=== PATIENT | female | born 1960 | race Caucasian/White ===

== ENCOUNTER 2020-09-05 10:29 | Inpatient (IN) ==
[2020-09-05] MEDS ORDERED: MIDAZOLAM 2 MG/2 ML VIAL ONE (11:37)
[2020-09-05] MEDS ORDERED: propofoL 200 MG/20 ML VIAL IV ONE (11:37)
[2020-09-05] MEDS ORDERED: fentaNYL 100 MCG/2 ML VIAL ONE (11:37)
[2020-09-05] MEDS ORDERED: LIDOCAINE 2% 5 ML VIAL ONE (11:37)
[2020-09-05] MEDS ORDERED: SUCCINYLCHOLINE 200 MG/10 ML VIAL ONE (11:38)
[2020-09-05] MEDS ORDERED: LACTATED RINGERS 1,000 ML IV SCH (12:30)
[2020-09-05 12:32] LABS: Basophils # 0.1 10*3/uL (0.0-0.2); Basophils % 0.9 % (0.0-0.8); Eosinophils # 0.1 10*3/uL (0.0-0.87); Hematocrit 33.3 VOL% (35.7-47.0); Immature Granulocytes % 0.5 %; Immature Granulocytes Absolute 0.06 #; Lymphocytes # 1.2 10*3/uL (1.4-4.0); Lymphocytes % 10.5 % (21.3-54.2); Mean Corpuscular HGB Conc 27.9 GM/DL (32-36); Mean Corpuscular Volume 70.3 FL (87-102); Monocytes % 10.9 % (1.7-12.7); Neutrophils % 76.2 % (38.7-73.9); Platelet Count 457 T/CUMM (130-400); Red Blood Count 4.74 MC/CUMM (3.8-5.5); Red Cell Distribution Width 23.6 % (9.3-17.3)
[2020-09-05 12:33] LABS: Hemoglobin 9.3 GM/DL (12.0-16.0)
[2020-09-05 12:34] LABS: Calcium 8.9 MG/DL (8.5-10.1); Osmolality,Calculated 272.8 MOS/KG (273-304); Potassium 3.8 MMOL/L (3.5-5.1)
[2020-09-05 12:37] LABS: Hypochromasia 1+; Microcytosis 2+; Ovalocytes Slight
[2020-09-05] MEDS ORDERED: ONDANSETRON 4 MG/2 ML VIAL IV PRN ×2 (12:53→13:32)
[2020-09-05] MEDS ORDERED: HYDROmorphone 2 MG/1 ML VIAL IV PRN ×2 (12:53→13:32)
[2020-09-05] MEDS ORDERED: ACETAMINOPHEN 325 MG TABLET PO PRN (12:53)
[2020-09-05] MEDS ORDERED: ALBUTEROL/IPRATROPIUM 3 ML NEB RESP TX ONE (13:14)
[2020-09-05] MEDS ORDERED: ALBUTEROL/IPRATROPIUM 3 ML NEB RESP TX STA (13:16)
[2020-09-05] MEDS ORDERED: PHENYLEPHRINE 1 MG/10 ML SYRINGE IV ONE (13:22)
[2020-09-05] MEDS ORDERED: DEXAMETHASONE 4 MG/1 ML VIAL ONE ×2 (13:22)
[2020-09-05] MEDS ORDERED: SEVOFLURANE 1 UNIT/15 MINUTE INH ONE (13:22)
[2020-09-05] MEDS ORDERED: ONDANSETRON 4 MG/2 ML VIAL ONE (13:22)
[2020-09-05] MEDS ORDERED: ALBUTEROL INHALER 18 GM INH ONE (13:23)
[2020-09-05] MEDS: PIPERACILLIN/TAZOBACTAM 3,375 MG in SODIUM CHLORIDE 0.9% 100 ML IV SCH ×2 (15:27→20:29)
[2020-09-05] MEDS: VANCOMYCIN INJ 1,250 MG in SODIUM CHLORIDE 0.9% 250 ML IV ONE ×2 (15:28→15:56)
[2020-09-06] MEDS ORDERED: VANCOMYCIN INJ 1,250 MG in SODIUM CHLORIDE 0.9% 250 ML IV SCH
[2020-09-06] MEDS ORDERED: diphenhydrAMINE 50 MG/1 ML VIAL IV ONE (02:40)
[2020-09-06 06:05] LABS: Basophils % 0.2 % (0.0-0.8); Hematocrit 28.2 VOL% (35.7-47.0); Hemoglobin 7.9 GM/DL (12.0-16.0); Immature Granulocytes % 0.8 %; Lymphocytes # 0.9 10*3/uL (1.4-4.0); Lymphocytes % 7.2 % (21.3-54.2); Mean Corpuscular Volume 70.7 FL (87-102); Monocytes % 5.9 % (1.7-12.7); Neutrophils % 85.9 % (38.7-73.9); Platelet Count 370 T/CUMM (130-400); Red Blood Count 3.99 MC/CUMM (3.8-5.5); Red Cell Distribution Width 22.9 % (9.3-17.3); White Blood Count 12.6 T/CUMM (4-12)
[2020-09-06] MEDS: PIPERACILLIN/TAZOBACTAM 3,375 MG in SODIUM CHLORIDE 0.9% 100 ML IV SCH ×3 (06:22→22:23)
[2020-09-06 07:30] LABS: Hypochromasia 1+; Microcytosis 2+; Ovalocytes Few; Platelet Estimate Normal; Polychromasia Slight
[2020-09-06] MEDS: PANTOPRAZOLE 40 MG TABLET PO SCH (09:17)
[2020-09-06] MEDS: SODIUM HYPOCHLORITE 0.25% IRRIG 473 ML BOTTLE TOP SCH (10:30)
[2020-09-06] MEDS ORDERED: CLINDAMYCIN INJ 300 MG/50 ML PREMIX IV SCH (11:00)
[2020-09-06] MEDS: diphenhydrAMINE CAP 25 MG CAPSULE PO PRN ×2 (14:01→22:26)
[2020-09-06] MEDS: CITALOPRAM 40 MG TABLET PO SCH (15:43)
[2020-09-06] MEDS ORDERED: NU IRON PO SCH (21:00)
[2020-09-06] MEDS: ZALEPLON 5 MG CAPSULE PO SCH (22:23)
[2020-09-07] MEDS: PIPERACILLIN/TAZOBACTAM 3,375 MG in SODIUM CHLORIDE 0.9% 100 ML IV SCH (04:47)
[2020-09-07] MEDS: CITALOPRAM 40 MG TABLET PO SCH (10:11)
[2020-09-07] MEDS: PANTOPRAZOLE 40 MG TABLET PO SCH (12:02)
[2020-09-07] MEDS: diphenhydrAMINE CAP 25 MG CAPSULE PO PRN ×2 (12:07→20:43)
[2020-09-07] MEDS: CLINDAMYCIN INJ 600 MG/50 ML PREMIX IV SCH ×3 (12:09→23:47)
[2020-09-07] MEDS: SODIUM HYPOCHLORITE 0.25% IRRIG 473 ML BOTTLE TOP SCH (14:00)
[2020-09-07] MEDS: ZALEPLON 5 MG CAPSULE PO SCH (20:43)
[2020-09-08] MEDS: CLINDAMYCIN INJ 600 MG/50 ML PREMIX IV SCH (05:25)
[2020-09-08 07:40] VITALS: BP 114/62
[2020-09-08] MEDS: CITALOPRAM 40 MG TABLET PO SCH (09:18)
[2020-09-08] MEDS: SODIUM HYPOCHLORITE 0.25% IRRIG 473 ML BOTTLE TOP SCH (09:40)
[2020-09-08] MEDS: PANTOPRAZOLE 40 MG TABLET PO SCH (10:11)
== END 2020-09-08 10:40 | disposition home or self-care (01) | DRG 580 ==
LOC: N.ED 10:29 → N.EDINP 10:29 → N.3E 12:30
PROVIDERS: ADMIT Student in an Organized Health Care Education/Training Program; ATTEND Student in an Organized Health Care Education/Training Program